=== PATIENT | male | born 1965 | race Caucasian/White ===

== ENCOUNTER 2017-07-28 13:14 | Emergency (ER) | payer BC, OTHER ==
[~2017-07-28] VITALS: Ht 175.3 cm; Wt 113.4 kg
[~2017-07-28 13:14] MED LIST: ASPI-86; ASPI325T4
--- NOTE | 2017-07-28 13:31 | ED EENT ---
History of Present Illness General Chief Complaint: Ear Problems Stated Complaint: LIGHTHEADED, R SIDE EAR ACHE, DRAINAGE Nursing Triage Note: PT C/O L EAR PAIN, CONGESTION, SORE THROAT. Source: patient Exam Limitations: no limitations History of Present Illness Time seen by provider: 13:27 Initial Comments This 51-year-old white male presents complaining of right ear pain for the last several days. The patient states that his girlfriend has had strep throat currently under treatment. Patient has had sore throat to accompany the right ear pain. There is been no associated significant fever, chills, stiff neck or headache, photophobia, cough, nausea, vomiting, or diarrhea. Patient is requesting an antibiotic and medications to help quotation real unclogged quotation real his ear. Allergies and Home Medications Allergies Coded Allergies: No Known Allergies (Unverified Allergy, Mild, 03/21/09) No Known Drug Allergies (Unverified Allergy, Mild, 03/28/09) Home Medications Aspirin 81 Mg Tab.chew, (Reported) Aspirin 325 Mg Tablet, (Reported) Review of Systems Constitutional: No chills, No fever Eyes: Denies Drainage Ears: Dizziness, Pain, Other (drainage from the right ear that is neither purulent nor bloody. The patient has been putting drops in the right ear prior to the noted drainage.) Nose: denies clots, denies epistaxis Mouth: denies loose teeth, denies swelling Respiratory: No cough Cardiovascular: No chest pain Gastrointestinal: No abdominal pain, No diarrhea, No nausea, No vomiting Musculoskeletal: No back pain, No joint swelling Neurological: No Symptoms Reported Hematologic/Lymphatic: No Symptoms Reported Immunological/Allergic: no symptoms reported Past Beneaxn-Hhsmmb-Vnpuxx Hx Patient Social History Alcohol Use: Denies Use Recreational Drug Use: No Smoking Status: Never a Smoker 2nd Hand Smoke Exposure: No Recent Foreign Travel: No Contact w/Someone Who Travel: No Recent Infectious Disease Expo: No Recent Hopitalizations: No Physical Abuse: No Sexual Abuse: No Seasonal Allergies Seasonal Allergies: No Surgeries History of Surgeries: No Psychosocial Suicide Risk Score: 0 Reviewed Nursing Assessment Reviewed/Agree w Nursing PMH: Yes Physical Exam Vital Signs Vital Sign - Last 12Hours 07/28/17 13:23 Temp 97.0 Pulse 91 Resp 16 B/P (MAP) 179/91 Pulse Ox 97 O2 Delivery Room Air General Appearance: WD/WN, no apparent distress Eyes: bilateral eye normal inspection Ears: bilateral ear auricle normal, bilateral ear canal normal, bilateral ear TM normal Nose: normal inspection Mouth/Throat: normal mouth inspection Neck: non-tender, full range of motion, supple Cardiovascular: normal peripheral pulses, regular rate, rhythm Respiratory: chest non-tender, lungs clear Neurologic/Psychiatric: no motor/sensory deficits, alert, normal mood/affect Skin: normal color, warm/dry (-) Progress/Results/Core Measures Results/Orders Vital Signs/I&O Vital Sign - Last 12Hours 07/28/17 13:23 Temp 97.0 Pulse 91 Resp 16 B/P (MAP) 179/91 Pulse Ox 97 O2 Delivery Room Air Blood Pressure Mean: 120 Progress Note : Time: 13:32 Progress Note The patient was placed on azithromycin, Sudafed, and Afrin spray. He was asked to follow-up with his primary care physician on Sunday if not markedly improved. He was invited to return to the emergency department if any further problems or questions. Departure Impression Impression: Primary Impression: URI (upper respiratory infection) Qualified Codes: J06.9 - Acute upper respiratory infection, unspecified Disposition: HOME, SELF-CARE Condition: Unchanged Departure-Patient Inst. Decision time for Depature: 13:33 Referrals: ELIDA LESTER MD (PCP) Primary Care Physician Add. Discharge Instructions: Azithromycin, Sudafed, and Afrin spray as prescribed. Close follow-up with Dr. Lester on Sunday if not markedly improved. Return if any problems or questions All discharge instructions reviewed with patient and/or family. Voiced understanding. SHARATH CASTILLO MD Jul 28, 2017 13:31
[2017-07-28 13:38] VITALS: BP 179/91
== END 2017-07-28 13:39 | disposition home or self-care (01) ==
LOC: EDUNIT# 13:14 → ER 13:15
DX: J06.9 Acute upper respiratory infection, unspecified (principal)
CPT/HCPCS: 99282

== ENCOUNTER → 2017-10-18 | Outpatient (CLI) | payer BC ==
--- NOTE | 2017-10-18 10:26 | Diagnostic Imaging Report ---
INDICATION: Abnormally elevated liver enzymes. TECHNIQUE: Multiple grayscale sonographic images were obtained of the right upper quadrant of the abdomen. CORRELATION STUDY: None. FINDINGS: LIVER: There is uniform increased echotexture within the visualized portions of the liver. Liver size 17.3 cm. GALLBLADDER: Cholecystectomy. COMMON BILE DUCT: Obscured and not visualized.. PANCREAS: Obscured, not visualized. RIGHT KIDNEY: Measures 12.8 cm. No hydronephrosis. AORTA/IVC: Not well visualized. OTHER: None. IMPRESSION: 1. A normal sized liver with likely changes of hepatic steatosis. No definitive focal lesion. 2. Postcholecystectomy changes. The common bile duct and pancreas are unable to be visualized, largely obscured. Dictated by: Dictated on workstation # [id number]
== END ==
LOC: RAD 09:27
PROVIDERS: ATTEND Nurse Practitioner Family
DX: R74.0 Nonspecific elevation of levels of transaminase and lactic acid dehydrogenase [LDH] (principal); Z90.49 Acquired absence of other specified parts of digestive tract
CPT/HCPCS: 76705

== ENCOUNTER 2018-12-12 08:33 | Outpatient (CLI) | payer BC ==
[~2018-12-12] VITALS: Ht 167.6 cm; Wt 129.7 kg
[2018-12-12] MEDS ORDERED: NAPR220T66 PO (08:49)
[2018-12-12] MEDS ORDERED: LISI-552 PO (08:49)
[2018-12-12] MEDS ORDERED: MULT-993 PO (08:49)
[2018-12-12] MEDS ORDERED: ASPI-999 PO (08:49)
[2018-12-12 08:51] VITALS: BP 156/92
[2018-12-12 09:25] LABS: BASOPHILS % (AUTO) 0 % (0-10); EOSINOPHILS # (AUTO) 0.1 10^3/uL (0.0-0.3); EOSINOPHILS % (AUTO) 3 % (0-10); HEMATOCRIT 45 % (40-54); HEMOGLOBIN 15.1 G/DL (13.3-17.7); LYMPHOCYTES # (AUTO) 2.5 X 10^3 (1.0-4.0); LYMPHOCYTES % (AUTO) 48 % (12-44); MEAN CORPUSCULAR HEMOGLOBIN 31 PG (25-34); MEAN CORPUSCULAR HGB CONC 33 G/DL (32-36); MEAN CORPUSCULAR VOLUME 93 FL (80-99); MEAN PLATELET VOLUME 8.9 FL (7.4-10.4); MONOCYTES # (AUTO) 0.5 X 10^3 (0.0-1.0); MONOCYTES % (AUTO) 10 % (0-12); NEUTROPHILS # (AUTO) 2.1 X 10^3 (1.8-7.8); NEUTROPHILS % (AUTO) 40 % (42-75); PLATELET COUNT 304 10^3/uL (130-400); RED CELL DISTRIBUTION WIDTH 13.8 % (10.0-14.5); WHITE BLOOD COUNT 5.2 10^3/uL (4.3-11.0)
== END 2018-12-12 09:05 | disposition home or self-care (01) ==
LOC: PREOP 08:33
PROVIDERS: ATTEND Surgery
DX: Z01.812 Encounter for preprocedural laboratory examination (principal); Z11.2 Encounter for screening for other bacterial diseases; K43.2 Incisional hernia without obstruction or gangrene
CPT/HCPCS: 36415; 85025; 87081

== ENCOUNTER 2018-12-26 07:40 | Day surgery (SDC) | payer BC, OTHER ==
[~2018-12-26] VITALS: Ht 167.6 cm; Wt 131.1 kg
[~2018-12-26 07:40] MED LIST changes: +ASPI-999 PO; +LISI-552 PO; +MULT-993 PO; +NAPR220T66 PO
[2018-12-26 08:00] VITALS: BP 143/89
[2018-12-26] MEDS ORDERED: ceFAZolin 2 GM IV Premixed 50 ML IV ONE (08:15)
[2018-12-26] MEDS: LACTATED RINGERS 1,000 ML IV PRN ×2 (08:15→11:55)
--- NOTE | 2018-12-26 08:27 | Progress Note-Pre Operative ---
Pre-Operative Progress Note H&P Reviewed The H&P was reviewed, patient examined and no changes noted. Date Seen by Provider: Dec 26, 2018 Time Seen by Provider: 08:25 Date H&P Reviewed: Dec 26, 2018 Time H&P Reviewed: 08:20 Pre-Operative Diagnosis: Symptomatic Ventral abdominal incisional hernia MARY VALIENTE APRN Dec 26, 2018 08:27
[2018-12-26] MEDS ORDERED: HYDR-3816 PO (08:29)
[2018-12-26] MEDS ORDERED: morphine INJ 10 MG/ML 1ML (SYR OR VIAL) IVP PRN (08:30)
[2018-12-26] MEDS ORDERED: HYDROcodone/APAP 5 MG/325 MG (LORTAB) TAB PO ONE (08:30)
[2018-12-26] MEDS ORDERED: ACETAMINOPHEN 325 MG TABLET PO PRN (08:30)
[2018-12-26] MEDS ORDERED: ONDANSETRON 4 MG/2 ML (SDV) Z0FRAN IVP PRN (08:30)
--- NOTE | 2018-12-26 08:30 | Discharge Inst-Surgical ---
D/C Lap Instructions-KIDO New, Converted, or Re-Newed RX: RX on Chart Follow Up Appt in 2 weeks Activity as tolerated No driving for 24 hours No driving while on pain medications Incentive Spirometry use every 2 hours while awake Regular Diet Symptoms to Report: Fever over 101 degree F, Nausea/Vomiting Infection Signs and Symptoms to report: Increased redness, Foul odor of wound, Increased drainage Bathing instructions: May shower Operative Area Clean/Dry; Keep incision clean/dry If any problems/questions: Contact your physician or go to Emergency Room MARY VALIENTE APRN Dec 26, 2018 08:30
[2018-12-26] MEDS ORDERED: ceFAZolin 2 GM IV Premixed 50 ML ONE (08:33)
[2018-12-26] MEDS ORDERED: MIDAZOLAM 2 MG/2 ML (VERSED) VIAL IV ONE (09:30)
[2018-12-26] MEDS ORDERED: MIDAZOLAM 2 MG/2 ML (VERSED) VIAL ONE ×2 (09:33→10:35)
[2018-12-26] MEDS ORDERED: BUP/EPI 0.5% 1:200,000 (SENSORCAINE) 30 ML VIAL ONE (10:32)
[2018-12-26] MEDS ORDERED: fentaNYL INJECTION 250 MCG/5 ML AMP ONE (10:35)
[2018-12-26] MEDS ORDERED: DEXAMETHASONE 10 MG/ML (DECADRON) 1 ML VIAL ONE (10:39)
[2018-12-26] MEDS ORDERED: ONDANSETRON 4 MG/2 ML (SDV) Z0FRAN ONE (10:39)
[2018-12-26] MEDS ORDERED: ROCURONIUM 10 MG/ML 5 ML SYRINGE IV ONE (10:39)
[2018-12-26] MEDS ORDERED: SEVOFLURANE (ULTANE) 15 ML INHAL SOLN ONE ×6 (10:39→12:26)
[2018-12-26] MEDS ORDERED: proPOfol 200 MG/20 ML (DIPRIVAN) VIAL IV ONE (10:39)
[2018-12-26] MEDS ORDERED: fentaNYL INJECTION 100 MCG/2 ML AMP IVP ONE (11:45)
[2018-12-26] MEDS ORDERED: MEPERIDINE (DEMEROL) INJ 50 MG/ML IVP ONE (11:45)
[2018-12-26] MEDS ORDERED: morphine INJ 10 MG/ML 1ML (SYR OR VIAL) IVP ONE (11:45)
[2018-12-26] MEDS ORDERED: RT-ALBUTEROL HFA (VENTOLIN) PER PUFF IH ONE (11:48)
[2018-12-26] MEDS ORDERED: GLYCOPYRROLATE 0.2 MG/ML (ROBINUL) 2 ML VIAL ONE (11:58)
[2018-12-26] MEDS ORDERED: NEOSTIGMINE 1 MG/ML 5 ML SYRINGE ONE (11:58)
[2018-12-26] MEDS ORDERED: PHENYLEPHRINE 100 MCG/ML 10 ML (ANESTHESIA) SYR ONE (12:01)
[2018-12-26] MEDS ORDERED: ROPIVACAINE 5MG/ML 30ML VIAL ONE (12:20)
[2018-12-26 13:35] VITALS: BP 144/92
[2018-12-26] MEDS ORDERED: HYDROcodone/APAP 5 MG/325 MG (LORTAB) TAB ONE (13:53)
[2018-12-26 14:05] VITALS: BP 144/82
[2018-12-26 14:35] VITALS: BP 146/88
[2018-12-26 14:40] VITALS: BP 146/88
--- NOTE | 2018-12-26 14:43 | Anesthesia-General Post-Op ---
General Patient Condition Mental Status/LOC: Same as Preop Cardiovascular: Satisfactory Nausea/Vomiting: Absent Respiratory: Satisfactory Pain: Controlled Complications: Absent Post Op Complications Complications None Follow Up Care/Instructions Patient Instructions None needed. Anesthesia/Patient Condition Patient Condition Patient was seen after the procedure and he was doing well, no complaints, stable vital signs, no apparent adverse anesthesia problems. SHASHANK VALERO DO Dec 26, 2018 14:43
--- NOTE | 2018-12-27 00:45 | OPERATIVE REPORT ---
DATE OF SERVICE: 12/26/2018 ATTENDING PRIMARY CARE PHYSICIAN: Dr. Cristian Mackey. PREOPERATIVE DIAGNOSIS: Symptomatic ventral abdominal incisional hernia. POSTOPERATIVE DIAGNOSIS: Symptomatic incarcerated ventral abdominal incisional hernia. PROCEDURE PERFORMED: Open incarcerated ventral abdominal incisional hernia repair with mesh. SURGEON: Javier Leach MD. ANESTHESIA: General endotracheal. ESTIMATED BLOOD LOSS: Minimal. FINDINGS: Ventral abdominal incisional hernia with a fascial defect approximately 3 cm in size and an 8 cm circular-coated mesh placed. DISPOSITION: The patient tolerated the procedure well. INDICATIONS: The patient is a 53-year-old male who we have seen before in the past. He had had a choledocholithiasis; however, this resolved and also found to have cholelithiasis and then underwent a laparoscopic cholecystectomy 08/2012. He reports that approximately 8 months ago, he did notice a bulge in the supraumbilical region which has grown in size and become painful. He does do a significant amount of lifting for work as well. On examination, he was found to have a incarcerated ventral abdominal incisional hernia. DESCRIPTION OF PROCEDURE: The patient was brought to the operating room, laid supine on the table. After adequate IV pain and sedative medications and general endotracheal intubation, the abdomen was prepped and draped in standard surgical fashion. Upon examination under anesthesia, the patient did have a hernia, which was nonreducible and incarcerated. This was above the umbilicus. This region was then anesthetized using 0.5% Marcaine with epinephrine and a crescent-shaped skin incision made using 15-blade. The subcutaneous tissue was then dissected down. The hernia sac was then identified and completely dissected out using electrocautery as well as blunt dissection. We then dissected a rim of fascia around the fascial defect using electrocautery as well as blunt dissection. The defect was approximately 3 cm in size. The hernia sac was then opened using Metzenbaum scissors with only greater omentum incarcerated within the hernia sac. The omentum was then excised as well as the remainder of the hernia sac using electrocautery under direct with visualization of good hemostasis. An 8 cm round-coated polypropylene mesh was then placed into the defect and then interrupted sutures placed transfascially as well as concentrically around the mesh of the fascia using #0 Prolene sutures. Good hemostasis was observed. The subcutaneous tissue was then reapproximated using 3-0 Vicryl interrupted sutures and skin was closed using 4-0 Monocryl running subcuticular suture. Wound was then cleaned and covered with Dermabond. The umbilicus was then filled with tonsil sponges followed by 4 x 4 gauze followed by a large Op-Site. The patient tolerated the procedure well. We will start IV normal pain medication as well as a clear liquid diet. Once he is tolerating clears, has good pain control with oral pain medications and ambulating well, we will discharge him home. He will be instructed to do no heavy lifting or exertion for the next 2 weeks and then slowly increase the activity as tolerated; however, he should do not any heavy lifting or exertion until six weeks from the surgery date. Job ID: [id number] DocumentID: [id number] Dictated Date: 12/26/2018 12:22:21 [employer] Date: 12/26/2018 21:09:55 Dictated By: JAVIER LEACH MD MTDD
== END 2018-12-26 14:49 | disposition home or self-care (01) ==
LOC: SDC 07:40
PROVIDERS: ATTEND Surgery
DX: K43.0 Incisional hernia with obstruction, without gangrene (principal); I10 Essential (primary) hypertension; G47.33 Obstructive sleep apnea (adult) (pediatric); G56.93 Unspecified mononeuropathy of bilateral upper limbs; E66.01 Morbid (severe) obesity due to excess calories; Z68.42 Body mass index [BMI] 45.0-49.9, adult; Z79.82 Long term (current) use of aspirin; Z79.899 Other long term (current) drug therapy

== ENCOUNTER → 2020-11-25 | Outpatient (CLI) | payer BC ==
[~2020-11-25] MED LIST changes: +HYDR-34 PO; -LISI-552 PO; +LISI20TA26 PO
--- NOTE | 2020-11-25 08:24 | Diagnostic Imaging Report ---
PROCEDURE: US Hepatic (Liver). TECHNIQUE: Multiple real-time grayscale images were obtained over the right upper quadrant in various projections. INDICATION: Elevated liver enzymes Liver has increased echogenicity. Portal vein is patent with hepatopetal flow. Gallbladder is surgically absent. The common duct is not dilated. Pancreas is obscured by bowel gas. Aorta and IVC appear normal. Right kidney measures 11.7 cm in length. There is no ascites. IMPRESSION: Hepatic steatosis. Dictated by: Dictated on workstation # [id number]
== END ==
LOC: RAD 07:30
PROVIDERS: ATTEND Family Medicine
DX: R79.89 Other specified abnormal findings of blood chemistry (principal); K76.0 Fatty (change of) liver, not elsewhere classified
CPT/HCPCS: 76705